=== PATIENT | male | born 1970 | race Caucasian/White ===

== ENCOUNTER → 2020-11-27 | Outpatient (CLI) | payer BC | LOC: EMI 10:54 | DX: R94.02 Abnormal brain scan (principal); R90.89 Other abnormal findings on diagnostic imaging of central nervous system | CPT/HCPCS: 70553; A9577 ==

== ENCOUNTER → 2021-08-27 | Outpatient (CLI) | payer BC | LOC: EXRD 09:12 | DX: R31.9 Hematuria, unspecified (principal); R93.41 Abnormal radiologic findings on diagnostic imaging of renal pelvis, ureter, or bladder | CPT/HCPCS: 74018 ==

== ENCOUNTER → 2021-10-23 | Outpatient (CLI) | payer BC ==
[2021-10-23 07:06] LABS: HEMOGLOBIN 15.4 gm/dl (14.0-17.5); RED BLOOD COUNT 5.22 M/UL (4.20-5.50); WHITE BLOOD COUNT 8.3 K/UL (4.5-11.0)
[2021-10-23 07:35] LABS: BUN/CREATININE RATIO 13 (0-10)
== END ==
LOC: LAB 06:34
PROVIDERS: Nurse Practitioner Family
DX: E79.0 Hyperuricemia without signs of inflammatory arthritis and tophaceous disease (principal); M25.50 Pain in unspecified joint; I10 Essential (primary) hypertension; E03.9 Hypothyroidism, unspecified; E78.5 Hyperlipidemia, unspecified; E53.8 Deficiency of other specified B group vitamins; E55.9 Vitamin D deficiency, unspecified; Z00.00 Encounter for general adult medical examination without abnormal findings
CPT/HCPCS: 36415; 80053; 80061; 82607; 84439; 84443; 84550; 85025

== ENCOUNTER → 2021-10-24 | Outpatient (CLI) | payer BC | LOC: US 09-21 09:00 → CT 09-21 09:00 | DX: R31.9 Hematuria, unspecified (principal); N28.89 Other specified disorders of kidney and ureter | CPT/HCPCS: Q9967 ==

== ENCOUNTER → 2022-03-05 | Outpatient (CLI) | payer BC ==
[2022-03-05 07:11] LABS: BUN/CREATININE RATIO 13 (0-10)
== END ==
LOC: LAB 06:36
PROVIDERS: Nurse Practitioner Family
DX: I10 Essential (primary) hypertension (principal); E79.0 Hyperuricemia without signs of inflammatory arthritis and tophaceous disease
CPT/HCPCS: 36415; 80048; 84550